=== PATIENT | female | born 1965 | race Caucasian/White ===

== ENCOUNTER 2016-10-16 11:17 | Day surgery (SDC) | payer BC ==
[~2016-10-16] VITALS: Ht 170.2 cm; Wt 56.7 kg
[~2016-10-16 11:17] MED LIST: CYANOCOBALAM1000 MCG IJ; LISINOPRIL10 MG PO; MERCAPTOPUR50 MG PO; OMEPRAZOLE20 M2 PO
[2016-10-16 14:26] VITALS: BP 139/80
== END 2016-10-16 14:45 | disposition home or self-care (01) | DRG 381 ==
LOC: ENDO 11:17
PROVIDERS: ATTEND Internal Medicine Gastroenterology
PROC: 0DB58ZX Excision of Esophagus, Via Natural or Artificial Opening Endoscopic, Diagnostic (ICD-10-PCS; principal; 2016-10-16)
PROC: 0DB98ZX Excision of Duodenum, Via Natural or Artificial Opening Endoscopic, Diagnostic (ICD-10-PCS; 2016-10-16)
DX: K22.70 Barrett's esophagus without dysplasia (principal); K50.90 Crohn's disease, unspecified, without complications; I10 Essential (primary) hypertension; K21.0 Gastro-esophageal reflux disease with esophagitis; R19.7 Diarrhea, unspecified; K29.70 Gastritis, unspecified, without bleeding; K44.9 Diaphragmatic hernia without obstruction or gangrene; K31.7 Polyp of stomach and duodenum

== ENCOUNTER 2017-04-09 14:45 | Emergency (ER) | payer BC ==
[~2017-04-09] VITALS: Ht 170.2 cm; Wt 56.0 kg
[2017-04-09 15:29] LABS: HEMATOCRIT 32.3 % (37.0-47.0); HEMOGLOBIN 10.6 g/dl (12.0-16.0); IMMATURE GRANULOCYTES 0.7 % (0.0-1.0); MEAN CELL VOLUME 107.3 fL CALC (80.0-100.0); MEAN CORPUSCULAR HGB 35.2 pG CALC (26.0-32.0); MEAN CORPUSCULAR HGB CONC 32.8 g/L CALC (32.0-36.0); PLATELET COUNT 303 thou/uL (130-400); RED BLOOD COUNT 3.01 mill/uL (4.20-5.60); RED CELL DISTRI WIDTH 14.6 % (11.5-15.5)
[2017-04-09 15:43] LABS: ALBUMIN 4.2 g/dL (3.2-5.0); ALKALINE PHOSPHATASE 114 u/l (38-126); ANION GAP 19 (6-22 (CALC)); BUN 22 mg/dL (7-17); BUN/CREATININE RATIO 20 (12-20 (CALC)); CALCIUM 9.4 mg/dL (8.4-10.2); CARBON DIOXIDE 27 mmol/l (22-30); CHLORIDE 99 mmol/l (95-108); CREATININE 1.1 mg/dL (0.5-1.0); GFR 53 ML/MIN (>=60 (CALC)); GFR FOR AFR.AMER. > 60 ML/MIN (>=60 (CALC)); GLUCOSE 153 mg/dL (65-105); POTASSIUM 3.2 mmol/l (3.5-5.1); SGOT/AST 17 u/l (14-36); SGPT/ALT 28 u/l (9-52); SODIUM 142 mmol/l (137-146); TOTAL PROTEIN 8.3 g/dL (6.3-8.2)
[2017-04-09 15:55] LABS: MYOGLOBIN 24 ng/mL (0 - 62)
[2017-04-09 15:59] LABS: MANUAL DIFFERENTIAL YES
[2017-04-09 16:15] LABS: BAND 21 % (0-8)
[2017-04-09 17:03] LABS: URINE BLOOD DIPSTICK NEGATIVE (NEGATIVE); URINE COLOR YELLOW; URINE GLUCOSE - DIPSTICK NEGATIVE (NEGATIVE); URINE KETONE NEGATIVE (NEGATIVE); URINE LEUK ESTERASE NEGATIVE (NEGATIVE); URINE NITRITE - DIPSTICK NEGATIVE (Negative); URINE PROTEIN - DIPSTICK 100 mg/dL (NEG-TRACE); URINE SPECIFIC GRAVITY >=1.030
[2017-04-09 17:05] LABS: URINE BILIRUBIN - DIPSTICK SMALL (NEGATIVE); URINE CLARITY TURBID
[2017-04-09] MEDS ORDERED: CIPROFLOXACN750 MG PO (17:18)
[2017-04-09 17:19] LABS: URINE MUCUS FEW hpf (NONE-FEW); URINE SQUAMOUS EPITHELIAL CELL FEW EPI/hpf (0-FEW)
[2017-04-09 17:51] VITALS: BP 113/69
== END 2017-04-09 17:57 | disposition home or self-care (01) | DRG 310 ==
LOC: ED 14:45
PROVIDERS: Emergency Medicine
DX: R00.0 Tachycardia, unspecified (principal)

== ENCOUNTER 2018-04-26 10:53 | Emergency (ER) | payer BC ==
[~2018-04-26] VITALS: Ht 170.2 cm; Wt 56.0 kg
[~2018-04-26 10:53] MED LIST changes: +CIPROFLOXACN750 MG PO; +FOLIC ACID800 MCG PO; +HUMIRA PEN40 MG/0.8; +LISINOPRIL40 MG PO; +VITAMIN D31000 UNI1 PO
[2018-04-26] MEDS ORDERED: FLEXERIL PO (12:46)
[2018-04-26] MEDS ORDERED: BACTROBAN TOP (12:46)
[2018-04-26] MEDS ORDERED: KEFLEX500 M1 PO (12:46)
[2018-04-26 13:05] VITALS: BP 163/89
== END 2018-04-26 13:05 | disposition home or self-care (01) | DRG 563 ==
LOC: ED 10:53
DX: S39.012A Strain of muscle, fascia and tendon of lower back, initial encounter (principal); M54.5 Low back pain; X50.1XXA Overexertion from prolonged static or awkward postures, initial encounter; Y93.E9 Activity, other interior property and clothing maintenance; Y92.89 Other specified places as the place of occurrence of the external cause; Y99.0 Civilian activity done for income or pay

== ENCOUNTER 2018-06-10 08:03 | Day surgery (SDC) | payer BC ==
[~2018-06-10] VITALS: Ht 170.2 cm; Wt 56.7 kg
[~2018-06-10 08:03] MED LIST changes: +BACTROBAN TOP; +CHLORHEXIDINE 0.12% MT; +FLEXERIL PO; +KEFLEX500 M1 PO
[2018-06-10 11:17] VITALS: BP 121/59
== END 2018-06-10 11:24 | disposition home or self-care (01) | DRG 381 ==
LOC: ENDO 08:03 → ORM 10:15 → ENDO 10:30
PROVIDERS: ATTEND Internal Medicine Gastroenterology
PROC: 0DB48ZX Excision of Esophagogastric Junction, Via Natural or Artificial Opening Endoscopic, Diagnostic (ICD-10-PCS; principal; 2018-06-10)
DX: K22.70 Barrett's esophagus without dysplasia (principal); K50.90 Crohn's disease, unspecified, without complications; K29.70 Gastritis, unspecified, without bleeding; K31.7 Polyp of stomach and duodenum; Q40.2 Other specified congenital malformations of stomach; K44.9 Diaphragmatic hernia without obstruction or gangrene; K21.9 Gastro-esophageal reflux disease without esophagitis; D64.9 Anemia, unspecified; K64.8 Other hemorrhoids; Z79.899 Other long term (current) drug therapy

== ENCOUNTER 2019-03-17 11:46 | Day surgery (SDC) | payer BC ==
[~2019-03-17] VITALS: Ht 170.2 cm; Wt 56.7 kg
[2019-03-17 14:21] VITALS: BP 126/81
== END 2019-03-17 14:55 | disposition home or self-care (01) | DRG 386 ==
LOC: ENDO 11:46 → ORM 13:45 → ENDO 14:55 → ORM 18:00 → ENDO 18:40
PROVIDERS: ATTEND Internal Medicine Gastroenterology
PROC: 0DBF8ZX Excision of Right Large Intestine, Via Natural or Artificial Opening Endoscopic, Diagnostic (ICD-10-PCS; principal; 2019-03-17)
PROC: 0DBE8ZX Excision of Large Intestine, Via Natural or Artificial Opening Endoscopic, Diagnostic (ICD-10-PCS; 2019-03-17)
DX: K50.112 Crohn's disease of large intestine with intestinal obstruction (principal); K63.3 Ulcer of intestine; K64.4 Residual hemorrhoidal skin tags; K64.8 Other hemorrhoids; D64.9 Anemia, unspecified; Z79.899 Other long term (current) drug therapy